=== PATIENT | female | born 1995 | race African-American/Black ===

== ENCOUNTER 2017-09-11 13:40 | Inpatient (IN) ==
[2017-09-11] MEDS ORDERED: OXYTOCIN/LR 20 UNIT/1,000 ML BAG IV SCH (16:30)
[2017-09-11 16:58] LABS: Basophils % 0.1 % (0.0-0.8); Eosinophils # 0.1 10*3/uL (0.0-0.87); Eosinophils % 1.2 % (0.00-10.9); Hematocrit 30.6 VOL% (35.7-47.0); Hemoglobin 10.3 GM/DL (12.0-16.0); Immature Granulocytes % 0.7 %; Immature Granulocytes Absolute 0.05 #; Lymphocytes # 1.6 10*3/uL (1.4-4.0); Lymphocytes % 21.1 % (21.3-54.2); Mean Corpuscular HGB Conc 33.7 GM/DL (32-36); Mean Corpuscular Hemoglobin 29 PG (27-34); Monocytes # 0.5 10*3/uL (0.11-0.8); Monocytes % 6.8 % (1.7-12.7); Neutrophils # 5.2 10*3/uL (1.4-7.4); Neutrophils % 70.1 % (38.7-73.9); Platelet Count 323 T/CUMM (130-400); White Blood Count 7.4 T/CUMM (4-12)
[2017-09-11] MEDS: LACTATED RINGERS 1,000 ML IV SCH (17:05)
[2017-09-11 17:23] LABS: Albumin 2.9 G/DL (3.4-5.0); Bilirubin,Total 0.4 MG/DL (0.2-1.0); Calcium 8.6 MG/DL (8.5-10.1); Osmolality,Calculated 277.3 MOS/KG (273-304); Potassium 3.2 MMOL/L (3.5-5.1); Total Protein 6.5 G/DL (6.4-8.3)
[2017-09-12] MEDS: ONDANSETRON 4 MG/2 ML VIAL IV PRN ×2 (00:52→21:49)
[2017-09-12] MEDS: BUTORPHANOL 2 MG/ML VIAL IV PRN ×4 (00:52→21:50)
[2017-09-12] MEDS: LACTATED RINGERS 1,000 ML IV SCH ×3 (00:53→16:48)
[2017-09-12] MEDS ORDERED: DINOPROSTONE 10 MG VAG.INSERT VAG ONE (06:00)
[2017-09-12] MEDS: OXYTOCIN/LR 20 UNIT/1,000 ML BAG IV SCH (21:49)
[2017-09-13] MEDS: BUTORPHANOL 2 MG/ML VIAL IV PRN (00:51)
[2017-09-13] MEDS: LACTATED RINGERS 1,000 ML IV SCH (00:51)
[2017-09-13] MEDS ORDERED: CITRIC ACID/SODIUM CITRATE 30 ML UDCUP PO ONE (02:15)
[2017-09-13] MEDS ORDERED: FAMOTIDINE 20 MG/2 ML VIAL IV ONE (02:15)
[2017-09-13] MEDS ORDERED: diphenhydrAMINE 50 MG/1 ML VIAL IV PRN (02:15)
[2017-09-13] MEDS ORDERED: hydrOXYzine HCL 25 MG/1 ML VIAL IM PRN (02:15)
[2017-09-13] MEDS ORDERED: ePHEDrine 50 MG/ML AMP IV PRN (02:15)
[2017-09-13] MEDS ORDERED: PROMETHAZINE 25 MG/1 ML VIAL IM ONE (02:15)
[2017-09-13] MEDS ORDERED: fentaNYL 2 MCG/ROPIV 0.2% EPID 150 ML EPIDURAL SCH (02:30)
[2017-09-13 06:10] LABS: Cord Venous Blood HCO3 23.9 MMOL/L; Cord Venous Blood PCO2 49.5 MMHG
[2017-09-13] MEDS ORDERED: IBUPROFEN 800 MG TABLET PO ONE (07:38)
[2017-09-13] MEDS: OXYTOCIN/LR 20 UNIT/1,000 ML BAG IV SCH (09:22)
[2017-09-13] MEDS ORDERED: [UNRECOGNIZED DRUG - OTHER] PO SCH (09:44)
[2017-09-13] MEDS ORDERED: ACETAMINOPHEN 325 MG TABLET PO PRN (09:44)
[2017-09-13] MEDS ORDERED: MAGNESIUM HYDROXIDE SUSP 30 ML UDCUP PO PRN (09:44)
[2017-09-13] MEDS ORDERED: BISACODYL 10 MG SUPP RECTAL PRN (09:44)
[2017-09-13] MEDS ORDERED: IBUPROFEN 800 MG TABLET PO PRN (09:44)
[2017-09-13] MEDS ORDERED: LACTATED RINGERS 1,000 ML IV SCH (09:44)
[2017-09-13] MEDS ORDERED: INFLUENZA VIRUS VACCINE 0.5 ML SYRINGE IM ONE (17:13)
[2017-09-13] MEDS: DOCUSATE SODIUM 100 MG CAPSULE PO SCH (20:47)
[2017-09-14 03:05] LABS: Basophils % 0.2 % (0.0-0.8); Eosinophils # 0.1 10*3/uL (0.0-0.87); Eosinophils % 0.6 % (0.00-10.9); Hematocrit 22.3 VOL% (35.7-47.0); Hemoglobin 7.4 GM/DL (12.0-16.0); Immature Granulocytes % 0.6 %; Immature Granulocytes Absolute 0.07 #; Lymphocytes # 2.5 10*3/uL (1.4-4.0); Lymphocytes % 22.2 % (21.3-54.2); Mean Corpuscular HGB Conc 33.2 GM/DL (32-36); Mean Corpuscular Hemoglobin 27 PG (27-34); Mean Platelet Volume 12.4 FL (9.6-12.0); Monocytes # 0.9 10*3/uL (0.11-0.8); Monocytes % 7.6 % (1.7-12.7); Neutrophils # 7.7 10*3/uL (1.4-7.4); Neutrophils % 68.8 % (38.7-73.9); Platelet Count 228 T/CUMM (130-400); Red Blood Count 2.72 MC/CUMM (3.8-5.5); Red Cell Distribution Width 15.3 % (9.3-17.3); White Blood Count 11.2 T/CUMM (4-12)
[2017-09-14] MEDS ORDERED: FERROUS SULFATE 325 MG TABLET PO SCH (09:00)
[2017-09-14] MEDS: DOCUSATE SODIUM 100 MG CAPSULE PO SCH ×2 (09:35→21:13)
[2017-09-15 08:01] VITALS: BP 110/76
[2017-09-15] MEDS: DOCUSATE SODIUM 100 MG CAPSULE PO SCH (08:45)
[2017-09-15] MEDS ORDERED: IRON (CARBONYL)/VIT C/B12/FA TABLET PO SCH (09:00)
[2017-09-15] MEDS ORDERED: DIPH/TET/ACEL PERT BOOSTER VACCINE 0.5 ML VIAL IM ONE (11:00)
[2017-09-15] MEDS ORDERED: INFLUENZA VIRUS VACCINE 0.5 ML SYRINGE IM ONE (11:01)
== END 2017-09-15 13:40 | disposition home or self-care (01) | DRG 560 ==
LOC: N.ULTRA 13:40 → N.LD 13:45 → N.OB 09-13 09:30
PROVIDERS: ADMIT Obstetrics & Gynecology; ATTEND Obstetrics & Gynecology

== ENCOUNTER 2018-12-04 15:01 | Inpatient (IN) ==
[2018-12-04] MEDS ORDERED: ONDANSETRON 4 MG/2 ML VIAL IV PRN (15:34)
[2018-12-04] MEDS ORDERED: AMPICILLIN INJ 2,000 MG in SODIUM CHLORIDE 0.9% 100 ML IV ONE (15:34)
[2018-12-04] MEDS: LACTATED RINGERS 1,000 ML IV SCH ×2 (15:48→23:56)
[2018-12-04] MEDS ORDERED: OXYTOCIN/LR 20 UNIT/1,000 ML BAG IV SCH (16:00)
[2018-12-04 16:26] LABS: Basophils % 0.1 % (0.0-0.8); Eosinophils % 0.2 % (0.00-10.9); Hematocrit 22.6 VOL% (35.7-47.0); Hemoglobin 6.8 GM/DL (12.0-16.0); Immature Granulocytes % 0.8 %; Immature Granulocytes Absolute 0.07 #; Lymphocytes # 1.8 10*3/uL (1.4-4.0); Lymphocytes % 21.1 % (21.3-54.2); Mean Corpuscular HGB Conc 30.1 GM/DL (32-36); Mean Corpuscular Hemoglobin 23 PG (27-34); Mean Corpuscular Volume 75.8 FL (87-102); Mean Platelet Volume 11.7 FL (9.6-12.0); Monocytes # 0.5 10*3/uL (0.11-0.8); Monocytes % 5.9 % (1.7-12.7); NRBC # 0.07 10*3/uL; Neutrophils # 6.2 10*3/uL (1.4-7.4); Neutrophils % 71.9 % (38.7-73.9); Platelet Count 299 T/CUMM (130-400); Red Blood Count 2.98 MC/CUMM (3.8-5.5); Red Cell Distribution Width 15.5 % (9.3-17.3); White Blood Count 8.6 T/CUMM (4-12)
[2018-12-04] MEDS: BUTORPHANOL 2 MG/ML VIAL IV PRN ×2 (19:14→22:17)
[2018-12-04] MEDS: AMPICILLIN INJ 1,000 MG in SODIUM CHLORIDE 0.9% 100 ML IV SCH ×2 (19:57→23:56)
[2018-12-05] MEDS ORDERED: FAMOTIDINE 20 MG/2 ML VIAL IV ONE (01:47)
[2018-12-05] MEDS ORDERED: ePHEDrine 50 MG/ML AMP IV ONE (01:48)
[2018-12-05] MEDS ORDERED: CITRIC ACID/SODIUM CITRATE 30 ML UDCUP PO ONE (01:48)
[2018-12-05] MEDS ORDERED: fentaNYL 2 MCG/ROPIV 0.2% EPID 100 ML EPIDURAL ONE (01:52)
[2018-12-05] MEDS ORDERED: fentaNYL 2 MCG/ROPIV 0.2% EPID 100 ML EPIDURAL SCH (02:00)
[2018-12-05 03:06] LABS: Apearance,Urine CLEAR (Clear); Bilirubin,Urine Negative (Negative); Blood, Urine Negative (Negative); Glucose,Urine (UA) Negative (Negative); Ketones,Urine 20 mg/dL (Negative); Mucus,Urine Occasional /LPF (Occasional); Nitrite,Urine Negative (Negative); Protein,Urine 30 MG/DL; RBC,Urine 1 /HPF (0-4); Squamous Epithelial Cell,Urine Few /HPF (0-10); Urine Color Yellow (Yellow); Urine Specific Gravity 1.027 (1.001-1.035); WBC,Urine 2 /HPF (0-6)
[2018-12-05] MEDS: AMPICILLIN INJ 1,000 MG in SODIUM CHLORIDE 0.9% 100 ML IV SCH ×3 (03:56→12:04)
[2018-12-05] MEDS ORDERED: METHYLERGONOVINE 0.2 MG/1 ML AMP ONE (12:09)
[2018-12-05] MEDS ORDERED: LIDOCAINE 1% 50 ML VIAL ONE (12:09)
[2018-12-05] MEDS ORDERED: miSOPROStol 200 MCG TABLET ONE (12:09)
[2018-12-05] MEDS ORDERED: ACETAMINOPHEN 325 MG TABLET PO PRN (14:01)
[2018-12-05] MEDS ORDERED: BISACODYL 10 MG SUPP RECTAL PRN (14:01)
[2018-12-05] MEDS ORDERED: MAGNESIUM HYDROXIDE SUSP 30 ML UDCUP PO PRN (14:01)
[2018-12-05 14:16] LABS: Cord Venous Blood HCO3 19.5 MMOL/L; Cord Venous Blood PCO2 45.8 MMHG; Cord Venous Blood PO2 23.7
[2018-12-05] MEDS ORDERED: LACTATED RINGERS 1,000 ML IV SCH (14:30)
[2018-12-05] MEDS: IBUPROFEN 800 MG TABLET PO PRN (15:03)
[2018-12-05] MEDS ORDERED: OXYTOCIN/LR 20 UNIT/1,000 ML BAG IV ONE (17:11)
[2018-12-05] MEDS ORDERED: OXYTOCIN 10 UNIT/ML VIAL ONE (17:14)
[2018-12-05] MEDS: FERROUS SULFATE 325 MG TABLET PO SCH (20:34)
[2018-12-05] MEDS: DOCUSATE SODIUM 100 MG CAPSULE PO SCH (20:34)
[2018-12-06 06:55] LABS: Basophils % 0.2 % (0.0-0.8); Eosinophils % 0.2 % (0.00-10.9); Hematocrit 19.3 VOL% (35.7-47.0); Immature Granulocytes % 0.8 %; Immature Granulocytes Absolute 0.11 #; Lymphocytes # 2.1 10*3/uL (1.4-4.0); Lymphocytes % 15.9 % (21.3-54.2); Mean Corpuscular HGB Conc 29.5 GM/DL (32-36); Mean Corpuscular Hemoglobin 23 PG (27-34); Mean Corpuscular Volume 76.3 FL (87-102); Mean Platelet Volume 11.7 FL (9.6-12.0); Monocytes # 1.1 10*3/uL (0.11-0.8); Monocytes % 8.2 % (1.7-12.7); NRBC # 0.09 10*3/uL; Neutrophils # 9.7 10*3/uL (1.4-7.4); Neutrophils % 74.7 % (38.7-73.9); Platelet Count 227 T/CUMM (130-400); Red Blood Count 2.53 MC/CUMM (3.8-5.5); Red Cell Distribution Width 15.6 % (9.3-17.3)
[2018-12-06 06:57] LABS: Hemoglobin 5.7 GM/DL (12.0-16.0)
[2018-12-06] MEDS ORDERED: SODIUM CHLORIDE 0.9% 1,000 ML IV PRN (07:19)
[2018-12-06] MEDS: FERROUS SULFATE 325 MG TABLET PO SCH ×2 (08:12→22:42)
[2018-12-06] MEDS: DOCUSATE SODIUM 100 MG CAPSULE PO SCH ×2 (08:12→22:42)
[2018-12-06] MEDS ORDERED: VALACYCLOVIR HCL 1000 MG PO SCH (09:00)
[2018-12-06] MEDS: IBUPROFEN 800 MG TABLET PO PRN (15:36)
[2018-12-06] MEDS: NIFEdipine 10 MG CAPSULE PO SCH (17:35)
[2018-12-07 06:01] LABS: Basophils % 0.3 % (0.0-0.8); Eosinophils # 0.1 10*3/uL (0.0-0.87); Eosinophils % 0.8 % (0.00-10.9); Hematocrit 28.4 VOL% (35.7-47.0); Hemoglobin 8.9 GM/DL (12.0-16.0); Immature Granulocytes % 1.4 %; Immature Granulocytes Absolute 0.17 #; Lymphocytes # 3.8 10*3/uL (1.4-4.0); Lymphocytes % 31.6 % (21.3-54.2); Mean Corpuscular HGB Conc 31.3 GM/DL (32-36); Mean Corpuscular Hemoglobin 25 PG (27-34); Mean Platelet Volume 11.3 FL (9.6-12.0); Monocytes # 0.9 10*3/uL (0.11-0.8); Monocytes % 7.6 % (1.7-12.7); NRBC # 0.17 10*3/uL; Neutrophils # 6.9 10*3/uL (1.4-7.4); Neutrophils % 58.3 % (38.7-73.9); Platelet Count 249 T/CUMM (130-400); Red Blood Count 3.64 MC/CUMM (3.8-5.5); Red Cell Distribution Width 15.5 % (9.3-17.3); White Blood Count 11.9 T/CUMM (4-12)
[2018-12-07] MEDS: NIFEdipine 10 MG CAPSULE PO SCH (09:35)
[2018-12-07] MEDS: FERROUS SULFATE 325 MG TABLET PO SCH (09:35)
[2018-12-07] MEDS: DOCUSATE SODIUM 100 MG CAPSULE PO SCH (09:35)
[2018-12-07 12:34] VITALS: BP 106/67
== END 2018-12-07 17:42 | disposition home or self-care (01) | DRG 560 ==
LOC: N.LDOUT 15:01 → N.LD 15:02 → N.OB 12-05 17:03
PROVIDERS: ADMIT Obstetrics & Gynecology; ATTEND Obstetrics & Gynecology